=== PATIENT | female | born 1980 | race Caucasian/White ===

== ENCOUNTER 2017-10-18 15:07 | Emergency (ER) | payer OTHER ==
[~2017-10-18] VITALS: Ht 160 cm; Wt 62.0 kg
[~2017-10-18 15:07] MED LIST: BACL10TA PO; FOLI1 PO; GABA400 PO; METO50TA PO; PERC10TA27 PO; PROT40TA PO; THERM PO; THIA100T PO; TRAM50 PO
[2017-10-18 15:09] VITALS: BP 155/92; PULSE 77; RESP 18; TEMP 98.2; O2SAT 100
[2017-10-18] MEDS ORDERED: HYDR-3583 PO (16:16)
[2017-10-18] MEDS ORDERED: METO25TA3 PO (16:16)
[2017-10-18] MEDS ORDERED: GABA600T PO (16:16)
[2017-10-18] MEDS ORDERED: BACL10TA PO (16:16)
[2017-10-18] MEDS ORDERED: ALPR.5 PO ×2 (16:16→16:38)
[2017-10-18 16:21] VITALS: BP 129/89; PULSE 72; RESP 17; O2SAT 100
[2017-10-18] MEDS ORDERED: ALPRAZolam 0.5 MG TAB PO ONE (16:30)
[2017-10-18] MEDS ORDERED: ALPRAZolam 0.25 MG TAB PO ONE (16:30)
--- NOTE | 2017-10-18 16:38 | PD ---
HPI Chief Complaint: Anxiety Time Seen by Provider: 16:20 Travel History International Travel<30 days: No Contact w/Intl Traveler<30days: No Traveled to known affect area: No History of Present Illness HPI 37-year-old female patient with history of polyneuropathy, chronic muscle spasms , anxiety, following with a neurologist, on Xanax on a regular basis due to anxiety, on hydrocodone on regular basis, presents to the ER today because she states that she is out of her Xanax and her pharmacy is closed and is not able to fill the medications for her. She states that she has been feeling anxious, having muscle spasms, and states that she had taken her last dose yesterday. She denies any new issues. Modifying Factors: None Associated Signs & Symptoms: Anxiety Risk Factors: Previous history of anxiety attack, on Xanax PFSH Past Medical History Arthritis: Yes Autoimmune Disease: No Anxiety: Yes Depression: Yes Cancer: No Cardiovascular Problems: No Diminished Hearing: No Endocrine: No Genitourinary: No Hypertension: Yes Immune Disorder: No Musculoskeletal: Yes (pt states she is unable to stand due to weakness in legs ) Neurologic: Yes Psychiatric: Yes (IV drug abuse/alcohol abuse) Reproductive: No Respiratory: No Schizophrenia: Yes Seizures: Yes Tetanus Vaccination: Unknown Influenza Vaccination: No ?: Not LMP: TWO WEEKS AGO : 1 Para: 0 Miscarriage: 1 : 0 Past Surgical History Surgical History: No Previous Surgery Social History Alcohol Use: No (QUIT UPON ADMISSION TO HOSPITAL) Tobacco Use: No (QUIT 05/2014) Substance Use: No Allergies-Medications (Allergen,Severity, Reaction): Coded Allergies: No Known Allergies (Unverified Adverse Reaction, Unknown, 10/18/17) Reported Meds & Prescriptions Reported Meds & Active Scripts Active Reported Hydrocodone-Acetaminophen 10-325 mg Tab 1 Tab PO Q4H PRN Xanax (Alprazolam) 0.5 Mg Tab 0.5 Mg PO Q8H PRN Baclofen 10 Mg Tab 10 Mg PO BID Metoprolol Tartrate 25 Mg Tab 12.5 Mg PO BID Gabapentin 600 Mg Tab 600 Mg PO TID Review of Systems Except as stated in HPI: all other systems reviewed are Neg Physical Exam Narrative GENERAL: Well-developed young female patient currently in mild distress. Awake and oriented 3. SKIN: Focused skin assessment warm/dry. HEAD: Atraumatic. Normocephalic. EYES: Pupils equal and round. No scleral icterus. No injection or drainage. ENT: No nasal bleeding or discharge. Mucous membranes pink and moist. NECK: Trachea midline. No JVD. CARDIOVASCULAR: Regular rate and rhythm. No murmur appreciated. RESPIRATORY: No accessory muscle use. Clear to auscultation. Breath sounds equal bilaterally. GASTROINTESTINAL: Abdomen soft, non-tender, nondistended. Hepatic and splenic margins not palpable. MUSCULOSKELETAL: No obvious deformities. No clubbing. No cyanosis. No edema. NEUROLOGICAL: Awake and alert. No obvious cranial nerve deficits. Motor grossly within normal limits. Normal speech. PSYCHIATRIC: Anxious mood and affect; insight and judgment normal. Data Data Last Documented VS Vital Signs Date Time Temp Pulse Resp B/P (MAP) Pulse Ox O2 Delivery O2 Flow Rate FiO2 10/18/17 16:21 72 17 129/89 (102) 100 Room Air 10/18/17 15:09 98.2 Orders Orders Alprazolam (Xanax) (10/18/17 16:30) Alprazolam (Xanax) (10/18/17 16:30) [facility] Medical Decision Making Medical Screen Exam Complete: Yes Emergency Medical Condition: Yes Medical Record Reviewed: Yes Differential Diagnosis Anxiety/request for medication refill Narrative Course Patient apparently has been on this medication for a long time, has multiple medical issues, muscle spasm issues, and is here with mother who states the same. She apparently has had extensive workup in the hospital and is following up with neurologist on a regular basis regarding this issue. She is requesting a refill and I have talked her regarding the fact that we do not give refills of anxiety medications in the ER on regular basis. However, I am willing to help her out because of her conditions and she was given 1 dose of Xanax and we' ll give her 3 doses until she can see her physician on Friday. She has been told that she needs to plan for these kind of things had a time with her physician the next time around. She should return for new issues as needed. The plan was discussed with her and she states understanding. Diagnosis Primary Impression: Anxiety Additional Impression: Medication refill Med/Other Pt SpecificInfo: Prescription(s) given Scripts Alprazolam (Xanax) 0.5 Mg Tab 0.5 MG PO Q8H Y for ANXIETY, #3 TAB 0 Refills Prov: Jaylan Monge MD 10/18/17 Disposition: 01 DISCHARGE HOME Condition: Stable Jaylan Monge MD Oct 18, 2017 16:38
== END 2017-10-18 17:30 | disposition home or self-care (01) ==
LOC: NEPD 15:07
DX: F41.9 Anxiety disorder, unspecified (principal); M62.838 Other muscle spasm; M19.90 Unspecified osteoarthritis, unspecified site; F32.9 Major depressive disorder, single episode, unspecified; I10 Essential (primary) hypertension; F20.9 Schizophrenia, unspecified; R56.9 Unspecified convulsions; Z79.899 Other long term (current) drug therapy; Z76.0 Encounter for issue of repeat prescription
CPT/HCPCS: 99283